=== PATIENT | male | born 1995 | race Caucasian/White ===

== ENCOUNTER 2017-08-18 12:49 | Emergency (ER) | payer BC, OTHER ==
[2017-08-18] MEDS: LIDOCAINE 1% (MDV) 10 ML INJ INFIL (13:22)
[2017-08-18] MEDS: HYDROCODONE/APAP (5/325) TAB PO (13:22)
[2017-08-18] MEDS ORDERED: ACETAMINOPHEN 325 MG TAB PO (13:30)
== END 2017-08-18 14:25 | disposition home or self-care (01) ==
LOC: FTE 12:49
DX: S01.311A Laceration without foreign body of right ear, initial encounter (principal); W20.8XXA Other cause of strike by thrown, projected or falling object, initial encounter; Y92.9 Unspecified place or not applicable
CPT/HCPCS: 12011; 99283-25